=== PATIENT | male | born 1975 | race Caucasian/White ===

== ENCOUNTER → 2024-01-01 06:40 | Day surgery (SDC) | payer BC, SELFPAY | LOC: GI 06:40 | PROVIDERS: ATTENDING PHYSICIAN Student in an Organized Health Care Education/Training Program; FAMILY PHYSICIAN Nurse Practitioner Family | DX: Z12.11 Encounter for screening for malignant neoplasm of colon (principal); K62.89 Other specified diseases of anus and rectum; K57.30 Diverticulosis of large intestine without perforation or abscess without bleeding; D12.3 Benign neoplasm of transverse colon; K64.9 Unspecified hemorrhoids; K63.5 Polyp of colon | CPT/HCPCS: 45385; 45380; 88305 ==

== ENCOUNTER 2025-01-30 06:19 | Day surgery (SDC) | payer BC, SELFPAY ==
[2025-01-30] VITALS (10 sets, daily range): BP systolic 101–143; BP diastolic 42–88; BMI 27.7
[2025-01-30] MEDS: NORMOSOL-R/PLASMALYTE-A 1000 IV (10:42)
== END 2025-01-30 13:50 | disposition home or self-care (01) ==
LOC: SDS 06:19
PROVIDERS: ATTENDING PHYSICIAN Surgery
DX: K60.2 Anal fissure, unspecified (principal)
CPT/HCPCS: 46505; J0585